=== PATIENT | male | born 1955 | race Caucasian/White ===

== ENCOUNTER 2017-06-07 00:38 | Emergency (ER) | payer SELFPAY ==
[~2017-06-07] VITALS: Ht 177.8 cm; Wt 90.0 kg
[2017-06-07 08:30] VITALS: BP 147/87
== END 2017-06-07 13:38 | disposition home or self-care (01) ==
LOC: ER 00:41
DX: G89.29 Other chronic pain (principal); M54.9 Dorsalgia, unspecified; Z93.3 Colostomy status
CPT/HCPCS: 99284; Z7610; 99283